=== PATIENT | female | born 1930 | race Hispanic/Latino ===

== ENCOUNTER 2017-02-15 16:04 | Outpatient (CLI) | payer MEDICARE | END 2017-02-15 16:05 | disposition home or self-care (01) | LOC: VAS 16:04 | PROVIDERS: ATTEND Internal Medicine | DX: M79.605 Pain in left leg (principal); M79.89 Other specified soft tissue disorders; I10 Essential (primary) hypertension; E78.00 Pure hypercholesterolemia, unspecified; J18.9 Pneumonia, unspecified organism; Z87.891 Personal history of nicotine dependence ==

== ENCOUNTER 2017-05-14 17:29 | Inpatient (IN) | payer MEDICARE ==
[2017-05-14 18:34] LABS: Basophils % (Auto) 0.7 % (0.0-1.8); Eosinophils % (Auto) 2.2 % (0.0-4.3); Hematocrit 34.6 % (30.3-42.9); Hemoglobin 11.5 gm/dl (10.1-14.3); Mean Corpuscular HGB Conc 33 % (30-34); Mean Corpuscular Hemoglobin 30 pg (28-32); Mean Corpuscular Volume 91 fl (79-97); Platelet Count 132 K/mm3 (140-440); Red Blood Count 3.81 M/mm3 (3.65-5.03); Red Cell Distribution Width 14.5 % (13.2-15.2)
[2017-05-14 18:35] LABS: Anion Gap 21 mmol/L; BUN/Creatinine Ratio 16; Blood Urea Nitrogen 11 mg/dL (7-17); Calcium 8.8 mg/dL (8.4-10.2); Carbon Dioxide 21 mmol/L (22-30); Glucose 102 mg/dL (65-100); Sodium 135 mmol/L (137-145)
--- NOTE | 2017-05-14 20:15 | XRay Report ---
FINAL REPORT EXAM: XR CHEST ROUTINE 2V HISTORY: Shortness of breath TECHNIQUE: Chest two views PA and lateral PRIORS: None. FINDINGS: There is patchy increased density within the left lower lobe partially obscuring the left hemidiaphragm. Cardiac silhouette is at the upper limits of normal for size. Pulmonary vasculature is within normal limits. No definitive pleural effusion identified. No evidence for pneumothorax IMPRESSION: Left lower lobe infiltrates suspect pneumonia Borderline cardiomegaly
[2017-05-15] MEDS ORDERED: LEVAQUIN 500MG/100ML 500 MG/100 ML BAG IV ONE (01:19)
[2017-05-15] MEDS ORDERED: DUONEB *Not for PRN Use IH ONE (01:23)
[2017-05-15] MEDS ORDERED: TYLENOL PO ONE (01:24)
--- NOTE | 2017-05-15 01:29 | Emergency Department Report ---
ED Shortness of Breath HPI - General Chief Complaint: Dyspnea/Respdistress Stated Complaint: SOB Time Seen by Provider: 05/15/17 01:03 Source: patient Mode of arrival: Ambulatory Limitations: No Limitations - History of Present Illness Initial Comments: 86 yo female who comes in today due to shortness of breath which worsened on today. Son admits that his Mom has complained of increasing shortness of breath in the last two weeks. She becomes winded after walking from one end of the house to another. Patient states that she's also having upper to mid back on the left side in addition to the shortness of breath. MD Complaint: shortness of breath -: week(s) (one) Radiation: back (upper to midback ) Severity: mild Quality: aching, sharp Consistency: constant Improves With: medication (pain medication ) Worsens With: coughing, inspiration Known History Of: other (htn, renal disease ) Associated Symptoms: other (left back pain ) Treatments Prior to Arrival: none - Related Data Home Oxygen Therapy: No Home Medications Medication Instructions Recorded Confirmed Last Taken Zofran Odt 4 mg PO Q8H PRN 02/04/15 02/04/15 02/04/15 oxyCODONE /ACETAMINOPHEN [Percocet 1.5 tab PO Q4HR PRN 02/04/15 02/04/15 5/325] Previous Rx's Medication Instructions Recorded Last Taken Type Bethanechol [Urecholine] 25 mg PO QID #90 tablet 02/08/15 Unknown Rx Famotidine [Pepcid] 40 mg PO DAILY #30 tablet 02/08/15 Unknown Rx Gabapentin [Neurontin 250 mg/5 ml] 2.5 ml PO TID #90 oral.liqd 02/08/15 Unknown Rx Potassium Chloride 10 meq PO QDAY 30 Days capsule.er 02/08/15 Unknown Rx amLODIPine [Norvasc] 5 mg PO DAILY #30 tablet 02/08/15 Unknown Rx Allergies Allergy/AdvReac Type Severity Reaction Status Date / Time Sulfa (Sulfonamide Allergy Severe Unknown Verified 05/15/17 01:35 Antibiotics) codeine Allergy Nausea Verified 05/15/17 01:36 ED Review of Systems ROS: Stated complaint: SOB Other details as noted in HPI Constitutional: malaise, weakness Eyes: denies: eye pain, eye discharge, vision change ENT: denies: ear pain, throat pain Respiratory: see HPI, cough, shortness of breath Cardiovascular: denies: chest pain, palpitations Endocrine: no symptoms reported Gastrointestinal: denies: abdominal pain, nausea, diarrhea Genitourinary: denies: urgency, dysuria, discharge Musculoskeletal: as per HPI, back pain Skin: denies: rash, lesions Neurological: denies: headache, weakness, paresthesias Psychiatric: denies: anxiety, depression Hematological/Lymphatic: denies: easy bleeding, easy bruising ED Past Medical Hx - Past Medical History Previous Medical History?: Yes Hx Hypertension: Yes Hx Arthritis: Yes (hands and knees) Hx HIV: No Additional medical history: skin cancer, jaw cancer and breast cancer, uterine cancer - Surgical History Hx Breast Surgery: Yes Additional Surgical History: hysterectomy. mastectomty- right side - Social History Smoking Status: Former Smoker Substance Use Type: None - Medications Home Medications: Home Medications Medication Instructions Recorded Confirmed Last Taken Type Zofran Odt 4 mg PO Q8H PRN 02/04/15 02/04/15 02/04/15 History oxyCODONE /ACETAMINOPHEN [Percocet 1.5 tab PO Q4HR PRN 02/04/15 02/04/15 History 5/325] Bethanechol [Urecholine] 25 mg PO QID #90 tablet 02/08/15 Unknown Rx Famotidine [Pepcid] 40 mg PO DAILY #30 tablet 02/08/15 Unknown Rx Gabapentin [Neurontin 250 mg/5 ml] 2.5 ml PO TID #90 oral.liqd 02/08/15 Unknown Rx Potassium Chloride 10 meq PO QDAY 30 Days capsule.er 02/08/15 Unknown Rx amLODIPine [Norvasc] 5 mg PO DAILY #30 tablet 02/08/15 Unknown Rx ED Physical Exam - General Limitations: No Limitations General appearance: alert, in no apparent distress - Head Head exam: Present: atraumatic, normocephalic - Eye Eye exam: Present: normal appearance - ENT ENT exam: Present: mucous membranes moist - Neck Neck exam: Present: normal inspection - Respiratory Respiratory exam: Present: other (crackles-left mid-lower lung lee ) - Cardiovascular Cardiovascular Exam: Present: regular rate, normal rhythm. Absent: systolic murmur, diastolic murmur, rubs, gallop - GI/Abdominal GI/Abdominal exam: Present: soft, normal bowel sounds - Extremities Exam Extremities exam: Present: normal inspection - Back Exam Back exam: Present: tenderness (mid-upper left lung lee ) - Neurological Exam Neurological exam: Present: alert, oriented X3 - Psychiatric Psychiatric exam: Present: normal affect, normal mood - Skin Skin exam: Present: warm, dry, intact, normal color. Absent: rash ED Course Vital Signs 05/14/17 05/14/17 05/15/17 17:46 23:57 00:16 Temperature 97.3 F L 98.5 F Pulse Rate 100 H 92 H Pulse Rate [ Posterior Bases ] Respiratory 20 18 Rate Respiratory Rate [Posterior Bases] Blood Pressure 127/72 114/71 O2 Sat by Pulse 94 96 93 Oximetry 05/15/17 05/15/17 05/15/17 00:30 00:45 00:56 Temperature Pulse Rate 86 88 88 Pulse Rate [ Posterior Bases ] Respiratory 22 18 22 Rate Respiratory Rate [Posterior Bases] Blood Pressure 110/62 110/74 O2 Sat by Pulse 95 94 95 Oximetry 05/15/17 05/15/17 05/15/17 01:00 01:16 01:30 Temperature Pulse Rate 84 91 H 84 Pulse Rate [ Posterior Bases ] Respiratory 24 24 19 Rate Respiratory Rate [Posterior Bases] Blood Pressure 107/61 107/61 112/68 O2 Sat by Pulse 96 96 95 Oximetry 05/15/17 05/15/17 05/15/17 01:40 01:46 02:00 Temperature Pulse Rate 90 95 H Pulse Rate [ 84 Posterior Bases ] Respiratory 26 H 24 Rate Respiratory 18 Rate [Posterior Bases] Blood Pressure 112/68 117/68 O2 Sat by Pulse 100 96 Oximetry 05/15/17 02:16 Temperature Pulse Rate Pulse Rate [ Posterior Bases ] Respiratory 22 Rate Respiratory Rate [Posterior Bases] Blood Pressure O2 Sat by Pulse Oximetry - Reevaluation(s) Reevaluation #1: 05/15/17 02:52 Patient resting quietly in the room. States that she feels somewhat better. Plan to admit to hospitalist for community acquired pneumonia. ED Medical Decision Making - Lab Data Result diagrams: 05/14/17 18:05 05/14/17 18:05 - EKG Data When compared to previous EKG there are: previous EKG unavailable Interpretation: nonspecific ST-T wave caroline, other (sinus tachycardia-105) - Radiology Data Radiology results: report reviewed Left lower lobe infiltrate and borderline cardiomegaly. - Medical Decision Making Community acquired pneumonia CHF? - Differential Diagnosis Community acquired pneumonia Critical care attestation.: If time is entered above; I have spent that time in minutes in the direct care of this critically ill patient, excluding procedure time. ED Disposition Clinical Impression: Pneumonia, Shortness of breath Disposition: DC-09 OP ADMIT IP TO THIS HOSP Is pt being admited?: Yes Does the pt Need Aspirin: No Condition: Stable Instructions: Bacterial Pneumonia (ED) Referrals: JOSEPHINE MARC MD [Primary Care Provider] - 3-5 Days Time of Disposition: 02:55
[2017-05-15] MEDS ORDERED: LASIX IV ONE (02:39)
[2017-05-15] MEDS ORDERED: DULCOLAX PR PRN (04:01)
[2017-05-15] MEDS ORDERED: MILK OF MAGNESIA PO PRN (04:01)
[2017-05-15] MEDS ORDERED: TYLENOL PO PRN (04:01)
[2017-05-15] MEDS ORDERED: ZOFRAN IV PRN (04:01)
[2017-05-15] MEDS ORDERED: MOTRIN PO ONE (04:01)
--- NOTE | 2017-05-15 04:04 | History and Physical Report ---
History of Present Illness Date of examination: 05/15/17 History of present illness: 86-year-old woman with a history of hypertension, hypothyroidism, uterine, jaw, breast cancer, emergency room complaints of shortness of over the last 2 weeks. Her symptoms worsened today, complaining of generalized weakness Review Of Systems: Constitutional: no weight loss Ears, eyes, nose, mouth and throat: no nasal congestion, no nasal discharge, no sinus pressure, blurry vision, diplopia Neck: No neck pain or rigidity. Cardiovascular: chest pain, orthopnea, palpitations Respiratory: No cough Gastrointestinal: abdominal pain, hematochezia Genitourinary : no dysuria, frequency , hematuria Musculoskeletal: no muscle ache Integumentary: no rash, no pruritis Neurological: no parathesias, focal weakness Endocrine: no cold or heat intolerance, no polyuria or polydipsia Hematologic/Lymphatic: no easy bruising, no easy bleeding, no gland swelling Allergic/Immunologic: no urticaria, no angioedema. PAST MEDICAL HISTORY:hypertension, uterine, jaw, breast cancer PAST SURGICAL HISTORY: BRANDON/BSO, surgery on jaw, cataract extraction, rotator cuff FAMILY HISTORY: Hypertension SOCIAL HISTORY: No alcohol, tobacco, drugs Medications and Allergies Allergies Allergy/AdvReac Type Severity Reaction Status Date / Time Sulfa (Sulfonamide Allergy Severe Unknown Verified 05/15/17 01:35 Antibiotics) codeine Allergy Nausea Verified 05/15/17 01:36 Home Medications Medication Instructions Recorded Confirmed Last Taken Type Calcium Carbonate/Vitamin D3 1 each PO QDAY 05/15/17 05/15/17 Unknown History [Calcium 500-Vit D3 200 Tablet] Diltiazem Cd [Cardizem Cd] 240 mg PO QDAY 05/15/17 05/15/17 Unknown History Gabapentin [Neurontin 250 mg/5 ml] 1 tsp PO TID 05/15/17 05/15/17 Unknown History Levothyroxine [Synthroid] 75 mcg PO QAM 05/15/17 05/15/17 Unknown History Nystatin 1 tsp PO TID 05/15/17 05/15/17 Unknown History Ranitidine HCl [Zantac 150 MG TAB] 150 mg PO QHS 05/15/17 05/15/17 Unknown History traMADol [Ultram] 50 mg PO BID 05/15/17 05/15/17 Unknown History Exam - Physical Exam Narrative exam: Gen. appearance: Patient lying in bed in no acute distress HEENT: Normocephalic/atraumatic, pupils equal round reactive to light, extra alkaline movement intact, no scleral icterus, no JVD or thyromegaly or nodule, neck is supple, mucous membrane moist, no erythema or exudate Heart: S1-S2, regular rate and rhythm Lungs: Crackles,l breathing comfortable Abdomen: Positive bowel sounds, nontender, nondistended, no organomegaly Extremities: No edema, cyanosis, clubbing Neuro:: Oriented 3 , cranial nerves II-12 intact, speech, motor intact Skin: No rash, nodules, warm dry - Constitutional Vitals: Temp Pulse Resp BP Pulse Ox 98.5 F 95 H 22 117/68 96 05/14/17 23:57 05/15/17 02:00 05/15/17 02:16 05/15/17 02:00 05/15/17 02:00 Results - Labs CBC & Chem 7: 05/14/17 18:05 05/14/17 18:05 Labs: Abnormal lab results 05/14/17 05/14/17 05/15/17 Range/Units 18:05 18:05 01:50 Plt Count 132 L (140-440) K/mm3 Lymph % (Auto) 13.0 L (13.4-35.0) % [place] % (Auto) 9.9 H (0.0-7.3) % Lymph # 0.7 L (1.2-5.4) K/mm3 Seg Neutrophils % 74.2 H (40.0-70.0) % Sodium 135 L (137-145) mmol/L Chloride 97.0 L (98-107) mmol/L Carbon Dioxide 21 L (22-30) mmol/L Glucose 102 H (65-100) mg/dL NT-Pro-B Natriuret Pep 9007 H (0-900) pg/mL - Imaging and Cardiology EKG: image reviewed Chest x-ray: image reviewed Assessment and Plan Assessment Community acquired Pneumonia Hypertension hypothyroidism Thrombocytopenia History of cancer of the jaw, breast cancer, uterine Plan Admit to medicine Start IV Levaquin, follow blood cultures Continue appropiate outpatient medications Dvt prophylaxis
[2017-05-15] MEDS ORDERED: MOTRIN ONE (05:10)
[2017-05-15] MEDS: NEURONTIN PO SCH ×3 (08:35→20:08)
[2017-05-15] MEDS: OYSCO D 500 MG-200 UNIT PO SCH (09:07)
[2017-05-15] MEDS: CARDIZEM CD PO SCH (09:11)
[2017-05-15] MEDS ORDERED: PNEUMOVAX 23 IM ONE (12:00)
[2017-05-15] MEDS: SYNTHROID PO SCH (15:07)
--- NOTE | 2017-05-15 16:19 | Event Note ---
Date: 05/15/17 pt seen and examined. admitted with right lobe PNA. will cont abx, hydrate with Iv fluid, nebs treatment. Will cont plan of care as dictated in H and p
[2017-05-15] MEDS: ULTRAM PO PRN (17:00)
[2017-05-15] MEDS ORDERED: MOTRIN PO SCH (19:00)
[2017-05-15] MEDS: MOTRIN PO PRN (20:07)
[2017-05-15] MEDS: PEPCID PO SCH ×2 (20:09→21:48)
[2017-05-15] MEDS ORDERED: NON-FORMULARY (Ranitidine Hcl [Zantac 150 Mg Tab] 150 MG) PO SCH (22:00)
[2017-05-16] MEDS: SYNTHROID PO SCH (05:42)
[2017-05-16 05:58] LABS: Basophils % (Auto) 1.1 % (0.0-1.8); Eosinophils % (Auto) 1.7 % (0.0-4.3); Hematocrit 34.1 % (30.3-42.9); Hemoglobin 11.4 gm/dl (10.1-14.3); Mean Corpuscular HGB Conc 34 % (30-34); Mean Corpuscular Hemoglobin 30 pg (28-32); Mean Corpuscular Volume 89 fl (79-97); Platelet Count 123 K/mm3 (140-440); Red Blood Count 3.82 M/mm3 (3.65-5.03); Red Cell Distribution Width 14.4 % (13.2-15.2); White Blood Count 5.3 K/mm3 (4.5-11.0)
[2017-05-16 06:19] LABS: BUN/Creatinine Ratio 13; Blood Urea Nitrogen 8 mg/dL (7-17); Carbon Dioxide 20 mmol/L (22-30); Chloride 104.3 mmol/L (98-107); Glucose 112 mg/dL (65-100); Sodium 138 mmol/L (137-145)
[2017-05-16 06:22] LABS: Anion Gap 19 mmol/L
[2017-05-16 06:23] LABS: Potassium 5.3 mmol/L (3.6-5.0)
[2017-05-16] MEDS: NEURONTIN PO SCH ×3 (07:54→21:12)
[2017-05-16] MEDS: OYSCO D 500 MG-200 UNIT PO SCH (08:59)
[2017-05-16] MEDS: CARDIZEM CD PO SCH (09:00)
[2017-05-16] MEDS: DUONEB *Not for PRN Use IH SCH ×2 (14:09→20:29)
[2017-05-16] MEDS: ULTRAM PO PRN ×2 (14:56→21:11)
[2017-05-16] MEDS: MOTRIN PO PRN (14:57)
--- NOTE | 2017-05-16 15:56 | Progress Note ---
Assessment and Plan Aute respiratory failure with hypoxia, POA Community acquired Pneumonia/LLL PNA Hypertension hypothyroidism Thrombocytopenia History of cancer of the jaw, breast cancer, uterine elevated BNP Hyperkalemia Plan cont to monitor at medical unit cont IV Levaquin, follow blood cultures Resumed appropiate outpatient medications order 2d echo for elevated BNP kayexalate for hyperkalemia cont Dvt prophylaxis, Physical exam: Gen. appearance: Patient lying in bed in no acute distress, elderly female HEENT: Normocephalic/atraumatic, pupils equal round reactive to light, extra alkaline movement intact, no scleral icterus, no JVD or thyromegaly or nodule, neck is supple, mucous membrane moist, no erythema or exudate Heart: S1-S2, regular rate and rhythm Lungs: Crackles b/l, breathing comfortable Abdomen: Positive bowel sounds, nontender, nondistended, no organomegaly Extremities: No edema, cyanosis, clubbing Neuro:: Oriented 3 , cranial nerves II-12 intact, speech, motor intact Skin: No rash, nodules, warm dry Subjective Date of service: 05/16/17 Interval history: pt seen and examined c/o SOB with minimal exertion not on home O2 Son at bedside updated Objective - Constitutional Vitals: Vital Signs - 12hr 05/16/17 05/16/17 05/16/17 05:07 07:09 07:20 Temperature 98.8 F 97.8 F Pulse Rate 98 H Respiratory 18 20 Rate Blood Pressure 117/74 107/68 O2 Sat by Pulse 96 93 Oximetry 05/16/17 05/16/17 10:00 14:40 Temperature 97.7 F Pulse Rate 102 H Respiratory 20 Rate Blood Pressure 117/79 O2 Sat by Pulse 93 98 Oximetry - Labs CBC & Chem 7: 05/16/17 04:00 05/17/17 04:06 Labs: Abnormal lab results 05/16/17 05/16/17 Range/Units 04:00 04:00 Plt Count 123 L (140-440) K/mm3 [place] % (Auto) 10.8 H (0.0-7.3) % Lymph # 0.8 L (1.2-5.4) K/mm3 Seg Neutrophils % 70.4 H (40.0-70.0) % Potassium 5.3 H D (3.6-5.0) mmol/L Carbon Dioxide 20 L (22-30) mmol/L Creatinine 0.6 L (0.7-1.2) mg/dL Glucose 112 H (65-100) mg/dL
[2017-05-16] MEDS: PEPCID PO SCH (21:12)
[2017-05-16] MEDS ORDERED: LEVAQUIN 750MG/150ML 750 MG/150 ML BAG IV SCH (22:00)
[2017-05-16] MEDS ORDERED: PROVENTIL IH PRN (22:33)
[2017-05-17] MEDS ORDERED: LEVAQUIN 750MG/150ML 750 MG/150 ML BAG IV SCH (03:00)
[2017-05-17 04:40] LABS: Anion Gap 16 mmol/L; BUN/Creatinine Ratio 23; Blood Urea Nitrogen 14 mg/dL (7-17); Calcium 8.9 mg/dL (8.4-10.2); Carbon Dioxide 23 mmol/L (22-30); Chloride 106.7 mmol/L (98-107); Glucose 99 mg/dL (65-100); Sodium 141 mmol/L (137-145)
[2017-05-17 04:49] LABS: Potassium 4.2 mmol/L (3.6-5.0)
[2017-05-17] MEDS: SYNTHROID PO SCH (06:28)
[2017-05-17] MEDS: ULTRAM PO PRN ×2 (06:35→16:49)
[2017-05-17] MEDS: DUONEB *Not for PRN Use IH SCH ×3 (07:26→21:11)
[2017-05-17] MEDS: NEURONTIN PO SCH ×3 (08:38→20:00)
[2017-05-17] MEDS: MOTRIN PO PRN (09:45)
[2017-05-17] MEDS: OYSCO D 500 MG-200 UNIT PO SCH (09:45)
[2017-05-17] MEDS: CARDIZEM CD PO SCH ×2 (09:45→09:53)
[2017-05-17] MEDS ORDERED: LEVAQUIN PO SCH (10:00)
--- NOTE | 2017-05-17 11:41 | Consultation ---
History of Present Illness Consult date: 05/17/17 Requesting physician: TOÑITO HOLBROOK Consult reason: congestive heart failure History of present illness: The pt is an 86-year-old female with a past medical history significant for HTN , hypothyroidism, jaw cancer, uterine cancer, breast cancer s/p chemo and radiation (completed treatment per Dr. Shah 01/2015). She is previously unknown to our practice. She presented with c/o progressively worsening SOB over the past 2 weeks and LOBO for the past 2 years. She also c/o intermittent BLE edema for the past several months. She denies any chest pain, orthopnea, PND, palpitations, n/v, diaphoresis, dizziness or syncope. Following admission, she was diagnosed with LLL PNA. Her pro-BNP was found to be 9007 and thus echocardiogram was obtained, which showed EF 15-20%, mildly dilated LV, septal flattening of the interventricular septum c/w RV volume or pressure overload, restrictive diastolic filling pattern, LA moderate to severely dilated, mild AR , moderate to severe MR, mild to mod TR, RVSP 58mmHg, moderate pulm HTN. Cardiology has been consulted for further eval/management of CMP. On evaluation , pt reports that her SOB has been improving since receiving antibiotics. Pt denies any prior cardiac issues, including heart failure, NM, CAD. She reports that she believes she underwent echo several years ago and was told the study was normal. Past History Past Medical History: cancer, hypertension, other (hypothyroid) Past Surgical History: hysterectomy, Other (jaw surgery) Social history: denies: smoking, alcohol abuse, prescription drug abuse Medications and Allergies Allergies Allergy/AdvReac Type Severity Reaction Status Date / Time Sulfa (Sulfonamide Allergy Severe Unknown Verified 05/15/17 01:35 Antibiotics) codeine Allergy Nausea Verified 05/15/17 01:36 Home Medications Medication Instructions Recorded Confirmed Last Taken Type Calcium Carbonate/Vitamin D3 1 each PO QDAY 05/15/17 05/15/17 Unknown History [Calcium 500-Vit D3 200 Tablet] Diltiazem Cd [Cardizem Cd] 240 mg PO QDAY 05/15/17 05/15/17 Unknown History Gabapentin [Neurontin 250 mg/5 ml] 1 tsp PO TID 05/15/17 05/15/17 Unknown History Levothyroxine [Synthroid] 75 mcg PO QAM 05/15/17 05/15/17 Unknown History Nystatin 1 tsp PO TID 05/15/17 05/15/17 Unknown History Ranitidine HCl [Zantac 150 MG TAB] 150 mg PO QHS 05/15/17 05/15/17 Unknown History traMADol [Ultram] 50 mg PO BID 05/15/17 05/15/17 Unknown History Active Meds: Active Medications Acetaminophen (Tylenol) 650 mg PO Q4H PRN PRN Reason: Pain MILD(1-3)/Fever >100.5/BOSWELL Albuterol (Proventil) 2.5 mg IH Q4HRT PRN PRN Reason: Shortness Of Breath Albuterol/Ipratropium (Duoneb *Not For Prn Use*) 1 ampul IH TIDRT [facility] Last Admin: 05/17/17 07:26 Dose: 1 ampul Bisacodyl (Dulcolax) 10 mg ME QDAY PRN PRN Reason: Constipation unrelieved by MOM Calcium/Vitamin D (Oysco D 500 Mg-200 Unit) 1 each PO QDAY [facility] Last Admin: 05/17/17 09:45 Dose: 1 each Carvedilol (Coreg) 3.125 mg PO BID [facility] Famotidine (Pepcid) 20 mg PO QHS [facility] Last Admin: 05/16/17 21:12 Dose: 20 mg Gabapentin (Neurontin) 250 mg PO TID [facility] Last Admin: 05/17/17 08:38 Dose: 250 mg Ibuprofen (Motrin) 400 mg PO Q6H PRN PRN Reason: Pain Last Admin: 05/17/17 09:45 Dose: 400 mg Levofloxacin (Levaquin) 750 mg PO Q48H [facility] Last Admin: 05/17/17 09:45 Dose: 750 mg Levothyroxine Sodium (Synthroid) 75 mcg PO QAM@0600 [facility] Last Admin: 05/17/17 06:28 Dose: 75 mcg Magnesium Hydroxide (Milk Of Magnesia) 30 ml PO Q4H PRN PRN Reason: Constipation Ondansetron HCl (Zofran) 4 mg IV Q8H PRN PRN Reason: N/V unrelieved by Reglan Tramadol HCl (Ultram) 50 mg PO BID PRN PRN Reason: Pain, Moderate (4-6) Last Admin: 05/17/17 06:35 Dose: 50 mg Review of Systems Constitutional: no weight loss, no weight gain, no fever, no chills, no sweats Ears, nose, mouth and throat: no ear pain, no nose pain, no sinus pressure, no sinus pain Cardiovascular: edema (intermittent BLE), shortness of breath, dyspnea on exertion, leg edema (intermittent), decreased exercise tolerance, no chest pain , no orthopnea, no palpitations, no rapid/irregular heart beat, no syncope, no lightheadedness, no paroxysmal nocturnal dyspnea Respiratory: shortness of breath, dyspnea on exertion, no cough, no congestion, no wheezing, no pain on inspiration Gastrointestinal: no abdominal pain, no nausea, no vomiting, no diarrhea, no constipation, no change in bowel habits Genitourinary Female: no pelvic pain, no flank pain, no dysuria, no urinary frequency, no urgency Musculoskeletal: no neck stiffness, no neck pain, no shooting arm pain, no arm numbness/tingling, no low back pain, no shooting leg pain, no leg numbness/ tingling, no redness of joints Integumentary: no rash, no pruritis, no redness, no sores, no wounds Neurological: no head injury, no paralysis, no weakness, no parathesias, no numbness, no tingling, no seizures, no syncope Psychiatric: no anxiety Endocrine: no cold intolerance, no heat intolerance Hematologic/Lymphatic: no easy bruising, no easy bleeding, no lymphadenopathy Allergic/Immunologic: no urticaria, no wheezing, no persistent infections Physical Examination Vital Signs Pulse BP Pulse Ox 107 H 127/72 90 05/14/17 17:31 05/14/17 17:31 05/14/17 17:31 General appearance: no acute distress HEENT: Positive: PERRL, Normocephaly, Mucus Membranes Moist Neck: Positive: neck supple, trachea midline Cardiac: Positive: Reg Rate and Rhythm, S1/S2 Lungs: Positive: Rales (bibasilar ), Rhonchi Neuro: Positive: Grossly Intact, Cranial Nerve 2-12 Intact Abdomen: Positive: Unremarkable, Soft, Active Bowel Sounds. Negative: Tender Skin: Positive: Clear. Negative: Rash, Wound Musculoskeletal: No Fluid Collection, No Pain, Normal Range of Motion Extremities: Absent: edema Results 05/16/17 04:00 05/17/17 04:06 Comprehensive Metabolic Panel 05/17/17 Range/Units 04:06 Sodium 141 (137-145) mmol/L Potassium 4.2 D (3.6-5.0) mmol/L Chloride 106.7 (98-107) mmol/L Carbon Dioxide 23 (22-30) mmol/L BUN 14 (7-17) mg/dL Creatinine 0.6 L (0.7-1.2) mg/dL Glucose 99 (65-100) mg/dL Calcium 8.9 (8.4-10.2) mg/dL - Imaging and Cardiology Echo: pending EKG: report reviewed, image reviewed EKG interpretations - Telemetry EKG Rhythm: Sinus Rhythm - EKG Sinus rhythms and dysrhythmias: sinus rhythm AV and intraventricular conduction: left bundle branch block Assessment and Plan Assessment: LLL PNA 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 Pt underwent LHC 06/[address] Mildred Hubbard which showed no angiographic evidence of epicardial coronary disease, normal EF of 50-55%. Will consider repeat ischemic evaluation as OP once medically stabilized. Assessment and plan reviewed with pt and pt's son at bedside. The patient has been seen in conjunction with Dr. Bennett who agrees with the assessment and plan of care.
[2017-05-17] MEDS: COREG PO SCH (12:55)
--- NOTE | 2017-05-17 15:40 | Progress Note ---
Assessment and Plan Aute respiratory failure with hypoxia, POA Community acquired Pneumonia/LLL PNA Acute systolic HF with Ef 15 to 20% Hypertension, controlled hypothyroidism Thrombocytopenia, chronic History of cancer of the jaw, breast cancer, uterine elevated BNP Hyperkalemia Plan cont to monitor at medical unit cont IV Levaquin, negative blood cultures Resumed appropiate outpatient medications stopped cardizem and started on coreg for HF cardiology following, may need life vest s/p kayexalate for hyperkalemia cont Dvt prophylaxis, Physical exam: Gen. appearance: Patient lying in bed in no acute distress, elderly female HEENT: Normocephalic/atraumatic, pupils equal round reactive to light, extra ocular movement intact, no scleral icterus, no JVD or thyromegaly or nodule, neck is supple, mucous membrane moist, no erythema or exudate Heart: S1-S2, regular rate and rhythm Lungs: Crackles b/l, breathing comfortable Abdomen: Positive bowel sounds, nontender, nondistended, no organomegaly Extremities: No edema, cyanosis, clubbing Neuro:: Oriented 3 , cranial nerves II-12 intact, speech, motor intact Skin: No rash, nodules, warm dry Subjective Date of service: 05/17/17 Interval history: pt seen and examined c/o SOB with minimal exertion not on home O2 Son at bedside updated 2d echo showed Ef of 15 to 20% Objective - Constitutional Vitals: Vital Signs - 12hr 05/17/17 05/17/17 05/17/17 07:23 07:28 07:40 Temperature 97.9 F Pulse Rate 100 H Pulse Rate [ 91 H 95 H Anterior Bilateral Throughout] Respiratory 20 Rate Respiratory 18 18 Rate [Anterior Bilateral Throughout] Blood Pressure 105/72 O2 Sat by Pulse 95 96 Oximetry 05/17/17 05/17/17 05/17/17 09:45 09:53 13:17 Temperature Pulse Rate 100 H Pulse Rate [ 88 Anterior Bilateral Throughout] Respiratory 18 Rate Respiratory 18 Rate [Anterior Bilateral Throughout] Blood Pressure 105/72 O2 Sat by Pulse Oximetry 05/17/17 13:22 Temperature Pulse Rate Pulse Rate [ 89 Anterior Bilateral Throughout] Respiratory Rate Respiratory 18 Rate [Anterior Bilateral Throughout] Blood Pressure O2 Sat by Pulse Oximetry - Labs CBC & Chem 7: 05/16/17 04:00 05/17/17 04:06 Labs: Abnormal lab results 05/17/17 Range/Units 04:06 Creatinine 0.6 L (0.7-1.2) mg/dL
[2017-05-17] MEDS: PEPCID PO SCH (22:00)
[2017-05-18] MEDS: COREG PO SCH ×2 (08:19→10:08)
[2017-05-18] MEDS: DUONEB *Not for PRN Use IH SCH ×2 (08:38→15:49)
[2017-05-18] MEDS: OYSCO D 500 MG-200 UNIT PO SCH ×2 (08:52→10:08)
[2017-05-18] MEDS: SYNTHROID PO SCH (08:52)
[2017-05-18] MEDS: NEURONTIN PO SCH (08:59)
--- NOTE | 2017-05-18 09:31 | Progress Note ---
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 Cont coreg. Consider initiation of low dose lisinopril if BPs will tolerate. 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 Pt is not a candidate for AICD at this time given multiple bouts of cancer, unknown prognosis and unknown life expectancy. Will continue to monitor as OP. Currently stable cardiac status. Pt may discharge home from cardiology standpoint. Recommend follow up in our office with Marisol Jackson NP, within 1-2 weeks of hospital discharge ([phone]). Assessment and plan reviewed with pt at bedside. The patient has been seen in conjunction with Dr. Bennett who agrees with the assessment and plan of care. Subjective Date of service: 05/18/17 Principal diagnosis: CMP; PNA Interval history: Pt resting in bed, had a bout of nausea and vomiting this AM which has resolved since administration of zofran. no current cardiac complaints. Objective Last Vital Signs Temp 97.6 F 05/18/17 07:35 Pulse 103 H 05/18/17 08:00 Resp 18 05/18/17 08:00 BP 119/77 05/18/17 07:35 Pulse Ox 96 05/18/17 08:39 - Physical Examination HEENT: Positive: PERRL, Normocephaly, Mucus Membranes Moist Neck: Positive: neck supple, trachea midline Cardiac: Positive: S1/S2, Tachycardia Lungs: Positive: Decreased Breath Sounds Neuro: Positive: Grossly Intact, Cranial Nerve 2-12 Intact Abdomen: Positive: Unremarkable, Soft, Active Bowel Sounds. Negative: Tender Skin: Positive: Clear. Negative: Rash, Wound Musculoskeletal: No Fluid Collection, No Pain, Normal Range of Motion Extremities: Absent: edema - Imaging and Cardiology EKG: report reviewed, image reviewed Echo: pending - EKG Sinus rhythms and dysrhythmias: sinus rhythm AV and intraventricular conduction: left bundle branch block
[2017-05-18] MEDS: MOTRIN PO PRN (10:14)
--- NOTE | 2017-05-18 10:58 | Discharge Summary ---
Providers - Providers Date of Admission: 05/15/17 04:01 Date of discharge: 05/18/17 Attending physician: TOÑITO HOLBROOK 05/16/17 15:21 Physical Therapy Evaluation and Treat [CONS] Routine Comment: Reason For Exam: d/c clearance 05/17/17 08:26 Consult to Physician [CONS] Routine Consulting Provider: JEREMY PICHARDO Reason For Exam: new onset CHF Place consult to:: MARINO Notified:: XIN STOKES Was contact made?: Yes If yes, spoke with:: XIN STOKES Time called:: 09:19 Comment:: MITRA Primary care physician: JOSEPHINE MARC Hospitalization Condition: Stable Hospital course: The pt is an 86-year-old female with a past medical history significant for HTN , hypothyroidism, jaw cancer, uterine cancer, breast cancer s/p chemo and radiation (completed treatment per Dr. Shah 01/2015) presented with c/o progressively worsening SOB over the past 2 weeks and LOBO for the past 2 years. Following admission, she was diagnosed with LLL PNA. She was treated for LLL PNA and as needed nebulizer. Her pro-BNP was also found to be 9007 and thus echocardiogram was obtained, which showed EF 15-20%, mildly dilated LV, septal flattening of the interventricular septum c/w RV volume or pressure overload, restrictive diastolic filling pattern, LA moderate to severely dilated, mild AR , moderate to severe MR, mild to mod TR, RVSP 58mmHg, moderate pulm HTN. Cardiology was consulted for further eval/management of CMP. She was placed on BB but advised not to take BP meds if SBP <110. Will will f/u with branch specialist in one -two weeks. Discharge diagnosis and management: 1. Aute respiratory failure with hypoxia, POA - likley from CAP and acute heart failure 2. Community acquired Pneumonia/LLL PNA 3. 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 - Pt is not a candidate for AICD at this time given multiple bouts of cancer, unknown prognosis and unknown life expectancy. 4. Hypertension, controlled 5. hypothyroidism, on replacement therapy 6.Thrombocytopenia, chronic 7. History of cancer of the jaw, breast cancer, uterine - will continue outpt follow up 8. Hyperkalemia, s/p kayexalate, resolved Physical exam: Gen. appearance: Patient lying in bed in no acute distress, elderly female HEENT: Normocephalic/atraumatic, pupils equal round reactive to light, extra ocular movement intact, no scleral icterus, no JVD or thyromegaly or nodule, neck is supple, mucous membrane moist, no erythema or exudate Heart: S1-S2, regular rate and rhythm Lungs: Crackles b/l, breathing comfortable Abdomen: Positive bowel sounds, nontender, nondistended, no organomegaly Extremities: No edema, cyanosis, clubbing Neuro:: Oriented 3 , cranial nerves II-12 intact, speech, motor intact Skin: No rash, nodules, warm dry Disposition: DC-01 TO HOME OR SELFCARE Time spent for discharge: 32 minutes Core Measure Documentation - Palliative Care Palliative Care/ Comfort Measures: Not Applicable - Core Measures Any of the following diagnoses?: heart failure - Heart Failure Discharge Requirements MICAH/ARB for LVSD if EF <40%: No Reason for no MICAH/ARB: Hyperkalemia Beta carlos manuel at discharge: Yes Exam - Constitutional Vitals: Temp Pulse Resp BP Pulse Ox 97.6 F 103 H 18 119/77 96 05/18/17 07:35 05/18/17 08:00 05/18/17 08:00 05/18/17 07:35 05/18/17 08:39 Plan Activity: advance as tolerated Weight Bearing Status: Non-Weight Bearing Diet: low fat, low salt Follow up with: JOSEPHINE MARC MD [Primary Care Provider] - 3-5 Days Prescriptions: Carvedilol [Coreg] 3.125 mg PO BID #60 tablet Levofloxacin [Levaquin] 250 mg PO QDAY #3 tablet
[2017-05-18 14:31] VITALS: BP 120/78
== END 2017-05-18 15:30 | disposition home or self-care (01) | DRG 291 ==
LOC: ED 17:29 → 2B-ACE 05-15 04:01
PROVIDERS: ADMIT Internal Medicine; ATTEND Internal Medicine
PROC: 3E0234Z Introduction of Serum, Toxoid and Vaccine into Muscle, Percutaneous Approach (ICD-10-PCS; principal; 2017-05-15)
DX: I11.0 Hypertensive heart disease with heart failure (principal); J96.01 Acute respiratory failure with hypoxia; J18.1 Lobar pneumonia, unspecified organism; E87.5 Hyperkalemia; I50.21 Acute systolic (congestive) heart failure; I42.0 Dilated cardiomyopathy; E03.9 Hypothyroidism, unspecified; D69.6 Thrombocytopenia, unspecified; M54.9 Dorsalgia, unspecified; M19.242 Secondary osteoarthritis, left hand; M19.241 Secondary osteoarthritis, right hand; M17.0 Bilateral primary osteoarthritis of knee; I27.20 Pulmonary hypertension, unspecified; M19.042 Primary osteoarthritis, left hand; M19.041 Primary osteoarthritis, right hand; Z88.2 Allergy status to sulfonamides; Z88.5 Allergy status to narcotic agent; Z90.710 Acquired absence of both cervix and uterus; Z23 Encounter for immunization; Z90.11 Acquired absence of right breast and nipple; Z87.891 Personal history of nicotine dependence; Z85.3 Personal history of malignant neoplasm of breast; Z98.49 Cataract extraction status, unspecified eye; Z82.49 Family history of ischemic heart disease and other diseases of the circulatory system; Z92.21 Personal history of antineoplastic chemotherapy; Z92.3 Personal history of irradiation
CPT/HCPCS: 36415; 71020; 80048; 83880; 84439; 84443; 84484; 85025; 87040; 90471; 90732; 93005; 93010; 93306; 94640; 94760; 96365; 96375; G0009; G8978-GP; G8979-GP; J1940; J1956; J2405